=== PATIENT | male | born 1975 | race Caucasian/White ===

== ENCOUNTER 2020-09-05 16:22 | Outpatient (CLI) | payer OTHER, SELFPAY ==
[2020-09-05 16:55] LABS: SARS-CoV-2 Ag Negative (Negative)
== END 2020-09-05 16:23 | disposition home or self-care (01) ==
PROVIDERS: PCP Physician Assistant; Visit Provider Physician Assistant
DX: J01.01 Acute recurrent maxillary sinusitis (principal); Z20.822 Contact with and (suspected) exposure to COVID-19
CPT/HCPCS: 87426; C9803

== ENCOUNTER 2021-02-27 07:43 | Outpatient (CLI) | payer OTHER, SELFPAY ==
[2021-02-27 09:06] LABS: SARS-CoV-2 RNA PCR Negative (Negative)
== END 2021-02-27 07:44 | disposition home or self-care (01) ==
LOC: CHSLAB 07:49
PROVIDERS: PCP Physician Assistant; Visit Provider Physician Assistant
DX: Z20.822 Contact with and (suspected) exposure to COVID-19 (principal)
CPT/HCPCS: C9803; U0003; U0005

== ENCOUNTER 2021-04-21 11:50 | Emergency (ER) | payer OTHER, SELFPAY ==
--- NOTE | 2021-04-21 11:51 | ED.LOWEXIN ---
HPI - Extremity Injury (Lower) General Chief Complaint: Extremity Injury, Lower Stated Complaint: left foot pain Time Seen by Provider: 04/21/21 11:51 Source: patient and RN notes reviewed History of Present Illness HPI Narrative: Patient is a 46-year-old male who presents the urgent care with complaints of left great toe pain. Patient states that it started on Thursday and he has been having difficulty walking or even putting a sock over the foot. Patient has never had a history of gout in the past but believes he does have gout. Denies of any injury to the foot. No other acute complaints. No acute distress noted. Patient read the plan of care. Some parts of this dictation were generated by voice recognition software and may contain typographical and/or grammatical inaccuracies. Related Data Home Medications Medication Instructions Recorded Confirmed alprazolam 0.5 mg PO TID PRN 04/21/21 04/21/21 atorvastatin 20 mg PO DAILY 04/21/21 04/21/21 metoprolol tartrate 50 mg PO DAILY 04/21/21 04/21/21 omeprazole 20 mg PO DAILY 04/21/21 04/21/21 Allergies Allergy/AdvReac Type Severity Reaction Status Date / Time No Known Allergies Allergy Verified 04/21/21 12:19 Review of Systems Review of Systems: CONSTITUTIONAL: Denies fever, chills, or sweats. EYES: Denies visual changes, redness, or discharge. ENT: Denies rhinorrhea, congestion, sore throat, or otalgia. CARDIOVASCULAR: Denies chest pain, palpitations, or edema. RESPIRATORY: Denies cough or dyspnea. GASTROINTESTINAL: Denies abdominal pain, nausea, vomiting, or diarrhea. GENITOURINARY: Denies dysuria or hematuria. SKIN: Denies rash or itching. MUSCULOSKELETAL: Reports of left great toe pain NEUROLOGIC: Denies headache, numbness, or weakness. All other systems reviewed are negative, except as documented in HPI. PMFSH Comments At the time of my signature, I reviewed and agree with the nursing past medical, surgical, social, and family history. There is no relevant family history pertinent to the patient complaint. Exam Narrative: GENERAL: This is a well-nourished, well-developed patient, in no apparent distress. HEAD: normocephalic, atraumatic. EYES: PERRL. Sclera clear/white. Vision is grossly intact. EARS: External ears normal NOSE: External nose normal with no obvious nasal discharge, nares without redness, no rhinorrhea. THROAT: Mucous membranes moist, posterior pharynx clear. NECK: Neck supple CARDIOVASCULAR: Regular rate and rhythm without murmurs, gallops, or rubs. RESPIRATORY: Clear to auscultation. Breath sounds equal bilaterally. No wheezes, rales, or rhonchi. SKIN: warm, intact with no suspicious lesions or rash, good texture and turgor. NEURO: awake, alert, and oriented to person, place and time. There were no obvious focal neurologic abnormalities. EXTREMITIES: Moderate edema and erythema to the MCP of the left great toe with moderate tenderness. Positive strong left pedal pulse with capillary refill less than 2 seconds. No obvious deformity noted. Course Course Level of Care: Express Care Visit Vital Signs Vital signs: Vital Signs Temperature 98.5 F 04/21/21 11:58 Pulse Rate 85 04/21/21 11:58 Respiratory Rate 16 04/21/21 11:58 Blood Pressure 149/96 H 04/21/21 11:58 Pulse Oximetry 100 04/21/21 11:58 Temperature 98.5 F 04/21/21 12:19 Pulse Rate 85 04/21/21 12:19 Respiratory Rate 16 04/21/21 12:19 Blood Pressure 149/96 H 04/21/21 12:19 Pulse Oximetry 100 04/21/21 12:19 Reviewed-patient is informed that they may have pre-hypertension or hypertension based on a blood pressure reading in the department. I recommend the patient call the primary care provider listed on their discharge instructions or a physician of their choice this week to arrange follow-up for further evaluation of possible pre-hypertension or hypertension. MDM - Extremity Injury (Lower) MDM Narrative Medical decision making narrative: Advised the patie
[2021-04-21 11:58] VITALS: BP 149/96; PULSE 85; RESP 16; TEMP 36.9; O2SAT 100
[2021-04-21 12:19] VITALS: BP 149/96; PULSE 85; RESP 16; TEMP 36.9; O2SAT 100
== END 2021-04-21 12:30 | disposition home or self-care (01) ==
PROVIDERS: Emergency Provider Nurse Practitioner Family; PCP Physician Assistant
DX: M10.9 Gout, unspecified (principal); E78.00 Pure hypercholesterolemia, unspecified; I10 Essential (primary) hypertension; K21.9 Gastro-esophageal reflux disease without esophagitis; F41.9 Anxiety disorder, unspecified
CPT/HCPCS: 99203; G0463